=== PATIENT | male | born 1955 | race Caucasian/White ===

== ENCOUNTER 2016-08-19 09:10 | Observation (INO) | payer OTHER ==
--- NOTE | ~2016-08-19 | CR63 ---
[facility] A Service of [facility] RADIOLOGY TEXT RESULTS PATIENT: SERGIO LUNA LOCATION: [facility] 317 : 54 UNIT #: [id number] AGE: [address]: Javier Rossi MD SEX: M ORDER DR: [id number] [facility] [address] [place], [place] [address] [id number] I MR#: [id number] Acc #: [id number] NAME: SERGIO LUNA : 1955 SEX: M STUDY DATE/TIME: 08/19/2016 16:42 UNIT: [address] ROOM: [facility] STUDY DESCRIPTION: CR Chest 2 View Attending Physician: Zaheer Perez M.D. Ordering Physician: Ed Salomón Altamirano M.D. Primary Care Physician: Arpita Becker M.D. MEDICAL IMAGING REPORT This report is preliminary unless electronic signature is present EXAM 2 views chest 08/19/2016 HISTORY Weakness. Coughing, belly cramping began this a.m. History of asthma. Smoker 40+ years. TECHNIQUE PA and lateral radiographs of the chest are presented. COMPARISON Comparison 03/26/2016. FINDINGS Multiple old healed left rib fractures. Stable thoracic scoliosis. Heart [id number] limits of normal in size. Lungs hyperinflated. likely reflecting the patient's stated asthma, as well as probable COPD, given extensive smoking history. There is no evidence of acute infectious or inflammatory disease in the lungs. No pleural effusion or pneumothorax, and no suspicious nodule. Dictated by... Daron Ford M.D. THIS IS AN ELECTRONICALLY VERIFIED REPORT Daron Ford M.D. at 08/25/2016 10:15 AM STACIA/aurelia TD: 08/19/2016 18:32 JOB #: [id number] [facility] A Service of [facility] RADIOLOGY TEXT RESULTS PATIENT: SERGIO LUNA LOCATION: [facility] 317 : 54 UNIT #: [id number] AGE: [address]: Javier Rossi MD SEX: M ORDER DR: MEDICAL IMAGING REPORT Page 1 of 1 COPY
--- NOTE | ~2016-08-19 | DS ---
Unit #: [id number] #: [id number] Patient: SERGIO LUNA [id number] [facility] [address]. [place], [place] [address] [id number] I MR#: [id number] NAME: SERGIO LUNA. ROOM: 317 Age: 61 Sex: M Admission Date: 08/19/2016 : 1955 Discharge Date: 08/20/2016 Attending Physician: Javier Rossi M.D. Primary Care Physician: Arpita Becker M.D. DISCHARGE SUMMARY HOSPITAL COURSE This 61-year-old patient was admitted at [facility] with anemia. Patient had heme-positive stool and a hemoglobin of 8.6. His hemoglobin is [address] Up is planning to do an EGD, but patient is very upset as apparently his girlfriend did not get a guest food tray and wants to go home. Patient states that he will get scope done on outpatient basis. The nursing staff has spoken with Dr. Up who has stated that patient can be discharged and he will do scope on outpatient basis. Patient does not have any active bleeding, but his stools were heme-positive. He has history of alcoholism and alcoholic hepatitis. Patient is ambulatory and his last vital signs reveal temperature of 98.5, pulse is 72 per minute, respiratory rate is 18 per minute, and blood pressure is 130/77. His lab work today revealed creatinine of 1.3, sodium 135, and potassium is 3.9. His WBCs are 5.4, hemoglobin 8, and platelet count is 322. Therefore, we will discharge patient home with followup on outpatient basis. Patient had a chest x-ray done, which did not reveal any acute evidence of infection or inflammatory disease in the lungs. His urinalysis did not reveal any white blood cells and blood was negative. Therefore, patient will be discharged to follow up on outpatient basis. RECOMMENDATIONS ON DISCHARGE 1. Condition stable. 2. Activity as tolerated. 3. Followup: Patient advised to follow up with primary care physician in 3-[address] Up as recommended for EGD on outpatient basis. 4. Patient is advised to follow up with [facility] for alcohol abuse. MEDICATIONS ON DISCHARGE Patient is advised to continue his home medications, which include: 1. Albuterol 2 puffs q.4 hours p.r.n. 2. Lotrel 5/20 mg 1 tablet p.o. daily. 3. Tenormin 25 mg p.o. daily. 4. Prilosec 20 mg p.o. daily. 5. Folic acid 1 mg p.o. daily. 6. Vitamin D 50,000 units q.7 days. 7. I also advised patient to take thiamine 100 mg p.o. daily and iron sulfate 325 mg p.o. daily [id number]. The plan was discussed in detail with patient who showed complete understanding. He was offered to stay in hospital and get the EGD done, Unit #: [id number] #: [id number] Patient: SERGIO LUNA but patient is very upset and he is adamant to go home. He shows understanding to the fact that his noncompliance can lead to worsening of his condition and can lead to permanent disability and possible . Patient was offered a cardiology consultation, which his primary care has recommended, but patient declined that. So, we will request the patient's primary care physician to follow up on outpatient basis. Dictated by... Alvaro Najera TD: 08/20/2016 12:45 JOB #: [id number] CC: Alvaro Serna M.D. DISCHARGE SUMMARY Page 1 of 1 X Javier Rossi MD DISCHARGE SUMMARY
--- NOTE | ~2016-08-19 | HP ---
Unit #: [id number] #: [id number] Patient: SERGIO LUNA N [id number] [address] [place], [place] [address] [id number] I MR#: [id number] NAME: SERGIO LUNA ROOM: 317 Age: 61 Sex: M Admission Date: 08/19/2016 : 1955 Attending Physician: Jaycee Perez M.D. Primary Care Physician: Arpita Becker M.D. HISTORY AND PHYSICAL CHIEF COMPLAINT Weakness. HISTORY OF PRESENT ILLNESS The patient is 61-year-old male with history of hypertension who was brought to the hospital from the PCP's office concerning for the weakness and anemia. The patient had a blood work at the PCP's office two days ago with a hemoglobin of 8.8 and positive for the fecal occult blood test. The patient refused colonoscopy in the past and followup with the GI in the past. The patient also drinks alcohol pint to half a fifth of vodka. The patient is being admitted for the above reasons. PAST MEDICAL HISTORY History of hypertension. PAST SURGICAL HISTORY History of in the left shoulder. SOCIAL HISTORY Smokes a pack per day. Drinks alcohol pint to half of a fifth of vodka. Denies any illicit drug abuse. FAMILY HISTORY Reviewed and none. PHYSICAL EXAMINATION VITAL SIGNS: Temperature 98.1, pulse 89, respiratory rate 20, blood pressure 132/92. GENERAL: Patient is lying on the bed not in acute distress. HEENT: Atraumatic, normocephalic. Pupils equal, round, and reactive to light and accommodation. Extraocular movements are intact. NECK: Supple. LUNGS: Decreased air entry at the bases. HEART: Regular rate and rhythm. ABDOMEN: Soft, positive bowel sounds. EXTREMITIES: No cyanosis, no clubbing. DIAGNOSTIC STUDIES LABORATORY: Lab data pending. Hemoglobin 8.8 with fecal occult blood test positive. ASSESSMENT AND PLAN 1. Weakness. 2. Anemia. Unit #: [id number] #: [id number] Patient: SERGIO LUNA 3. Gastrointestinal bleed. PLAN 1. Admit patient as observation with telemetry. 2. Patient will be put on Protonix 40 IV daily. 3. Gastroenterology consultation. 4. Check chest x-ray. 5. Check CBC and BMP and UA in the morning. 6. Further recommendations will follow. Dictated by Alvaro Reynaga/tali TD: 08/19/2016 17:42 JOB #: [id number] HISTORY AND PHYSICAL Page 1 of 1 X JAYCEE PEREZ MD X HISTORY AND PHYSICAL
[~2016-08-19 09:10] MED LIST: ATENOLOL PO; LOTREL 5/20 MG1 CAP PO; PEN-VEE K PO; PERCOCET PO; VICODIN 5/500 T1 TAB PO
[2016-08-19 15:24] LABS: HEMATOCRIT 28.4 % (38.0-50.0); HEMOGLOBIN 8.6 gm/dL (13.0-16.0); MEAN CELL VOLUME 68.8 FL (83-96); MEAN CORPUSCULAR HEMOGLOBIN 20.9 PG (28-34); MEAN CORPUSCULAR HGB CONC 30.4 g/dL (30-36); MEAN PLATELET VOLUME 7.7 FL (6.5-11.5); RED BLOOD COUNT 4.13 X10e (3.90-5.60); RED CELL DISTRIBUTION WIDTH 20.3 % (11.0-15.5); WHITE BLOOD COUNT 9.9 X10e3 (4.0-10.5)
[2016-08-19] MEDS ORDERED: AMLODIPINE-BEN1 EACH PO (15:29)
[2016-08-19] MEDS ORDERED: FOLIC ACID1 MG PO (15:29)
[2016-08-19] MEDS ORDERED: PRILOSEC PO (15:30)
[2016-08-19] MEDS ORDERED: ALBUTEROL20 ml INH (15:31)
[2016-08-19] MEDS ORDERED: VITAMIN D22000 UNIT PO (15:33)
[2016-08-19 15:49] LABS: BUN/CREATININE RATIO 9.28; CALCIUM SERUM 8.2 mg/dL (8.4-10.2); CREATININE SERUM 1.4 mg/dL (0.6-1.4); GLOM FILT RATE Estimated 53.5 mL/min (>60); POTASSIUM 5.1 mmol/L (3.5-5.1)
[2016-08-19 22:57] LABS: URINE APPEARANCE CLEAR; URINE BILIRUBIN NEG (NEG); URINE BLOOD NEG (NEG); URINE COLOR YELLOW; URINE GLUCOSE 100 MG/DL (NEG); URINE KETONE TRACE (NEG); URINE LEUKOCYTE ESTERASE NEG (NEG); URINE NITRATE NEG (NEG); URINE PH 5.5 (5-8); URINE PROTEIN TRACE (NEG); URINE SPECIFIC GRAVITY 1.019 (1.003-1.035)
[2016-08-20 06:44] LABS: HEMATOCRIT 26.1 % (38.0-50.0); MEAN CELL VOLUME 68.8 FL (83-96); MEAN CORPUSCULAR HGB CONC 30.5 g/dL (30-36); MEAN PLATELET VOLUME 8.3 FL (6.5-11.5); RED BLOOD COUNT 3.8 X10e (3.90-5.60); RED CELL DISTRIBUTION WIDTH 19.8 % (11.0-15.5); WHITE BLOOD COUNT 5.4 X10e3 (4.0-10.5)
[2016-08-20 07:27] LABS: BUN/CREATININE RATIO 12.3; CREATININE SERUM 1.3 mg/dL (0.6-1.4); GLOM FILT RATE Estimated 58.5 mL/min (>60); POTASSIUM 3.9 mmol/L (3.5-5.1)
[2016-08-20] MEDS ORDERED: B-1100 MG PO (12:49)
[2016-08-20] MEDS ORDERED: IRON325 MG PO (12:49)
== END 2016-08-20 14:26 | disposition home or self-care (01) ==
LOC: C3A PCU 09:10 → UNDOADMOB 13:50 → C3A PCU 08-20 06:38
PROVIDERS: Internal Medicine
DX: D64.9 Anemia, unspecified (principal); R53.1 Weakness; R53.83 Other fatigue; K92.2 Gastrointestinal hemorrhage, unspecified; F10.20 Alcohol dependence, uncomplicated; K70.10 Alcoholic hepatitis without ascites; F17.200 Nicotine dependence, unspecified, uncomplicated
CPT/HCPCS: 71020; 80048; 81003; 85027; 87086; 94760; 96374; C9113; G0378

== ENCOUNTER → 2016-11-15 | Outpatient (CLI) | payer OTHER ==
[~2016-11-15] MED LIST changes: +ALBUTEROL20 ml INH; +AMLODIPINE-BEN1 EACH PO; +B-1100 MG PO; +FOLIC ACID1 MG PO; +IRON325 MG PO; +PRILOSEC PO; +VITAMIN D22000 UNIT PO
--- NOTE | ~2016-11-15 | OR ---
Unit #: [id number] #: [id number] Patient: SERGIO LUNA [id number] [address] [address] [id number] O MR#: [id number] NAME: SERGIO LUNA ROOM: Date of Procedure: 10/20/2016 Admission Date: 11/15/2016 Surgeon: Jaiden Up M.D. : 1955 Attending Physician: Jaiden Up M.D. Referring Physician: Jaiden Up M.D. Primary Care Physician: Arpita Becker M.D. OPERATIVE REPORT PROCEDURES PERFORMED Esophagogastroduodenoscopy with biopsy and colonoscopy with biopsies. INDICATIONS FOR PROCEDURE A 61-year-old gentleman with severe anemia, average risk for colorectal cancer, undergoing evaluation with upper endoscopy and colonoscopy. MEDICATIONS Monitored anesthesia. POSTOPERATIVE FINDINGS 1. Normal esophagus. 2. Mild chronic gastritis, biopsies taken. 3. Normal duodenum and distal duodenum. 4. Obstructing mass, transverse colon. I could not get into the cecum. Multiple biopsies taken. 5. Polyp, transverse colon. 6. Internal hemorrhoids. PLAN Follow up on the pathology report. CT scan of abdomen and pelvis. Further recommendations to follow. DESCRIPTION OF PROCEDURE The patient was explained of the procedure, risks, and benefits along with risks and benefits of anesthesia. He was brought to the endoscopy room. Propofol anesthesia was given. Bite block was placed. The scope was passed down the mouth into the esophagus, stomach, duodenum, and distal duodenum. Findings as described. Biopsies taken. Gently, the scope was pulled out of the patient's mouth. He tolerated it well. At this time, he was turned around and repositioned for colonoscopy. Rectal exam was done, which was normal. Colonoscope was lubricated, passed up the rectum, and advanced under direct vision all the way to the transverse colon. I could not go any further because of the obstructing mass. Gently, the scope was pulled out. Small polyp seen in transverse colon was left alone. I retroflexed in the rectum, small hemorrhoids seen. Scope was gently pulled out. He tolerated it well. No major complications were seen. Unit #: [id number] #: [id number] Patient: SERGIO LUNA Dictated by... Alvaro Serna/eugene TD: 11/18/2016 11:41 JOB #: [id number] OPERATIVE REPORT Page 1 of 1 X Jaiden Up MD X PROCEDURE OPERATIVE NOTE
--- NOTE | ~2016-11-15 | CT2 ---
[facility] A Service of [facility] RADIOLOGY TEXT RESULTS PATIENT: SERGIO LUNA LOCATION: [facility] : 53 UNIT #: [id number] AGE: [address]: Jaiden Up MD SEX: M ORDER DR: [id number] [facility] [address] [place], [place] [address] [id number] O MR#: [id number] #: [id number] NAME: SERGIO LUAN : 1955 SEX: M STUDY DATE/TIME: 11/15/2016 14:49 UNIT: [facility] ROOM: STUDY DESCRIPTION: CT Abd and Pelv W Cont Attending Physician: Jaiden Up M.D. Referring Physician: Jaiden Up M.D. Ordering Physician: Jaiden Up M.D. Primary Care Physician: Arpita Becker M.D. MEDICAL IMAGING REPORT This report is preliminary unless electronic signature is present EXAM CT of the abdomen and pelvis with contrast. HISTORY Abdominal cramping on and off for [address] images were obtained from the dome of the diaphragm through the symphysis pubis following administration of oral and intravenous contrast material. This CT exam was performed with one or more of the following radiation dose reduction techniques: automatic exposure control, adjustment of mA and/or kV according to patient size, and iterative reconstruction. FINDINGS Images through the lung bases are clear. The stomach and proximal small bowel appear within normal limits. Adrenal glands appear unremarkable. Calcified granulomata are seen within the spleen. Pancreas is within normal limits, as is the gallbladder. The liver appears unremarkable, as do the kidneys. This patient has a circumferentially thickened area of ascending colon, given history in appearance that is certainly worrisome for underlying colonic malignancy. Colitis would be in the differential, as well, but given relatively long-term history, again this is worrisome for malignancy. Further evaluation with colonoscopy is recommended. This process is not resulting in any obstruction. There is some mild pericolonic soft tissue stranding, and there are some prominent pericolonic nodes which measure around 5-6 mm in size. The appendix is visualized and is within normal limits. Dystrophic calcifications are seen within the prostate gland. Urinary bladder appears normal. This [facility] A Service of [facility] RADIOLOGY TEXT RESULTS PATIENT: SERGIO LUNA LOCATION: [facility] : 54 UNIT #: [id number] AGE: [address]: Jaiden Up MD SEX: M ORDER DR: patient does have colonic diverticulosis, but I do not see any convincing evidence of diverticulitis. I do not see any adenopathy within the pelvis. Review of bone windows does not demonstrate any aggressive osseous abnormalities. IMPRESSION 1. This patient has a circumferential area of thickening involving the ascending colon, adjacent to the hepatic flexure. Given history and appearance, I think it is certainly worrisome for malignancy. There does appear to be some associated mild pericolonic soft tissue stranding and some mildly prominent pericolonic nodes. Colitis would also be in the differential, but given length of symptoms, I think certainly malignancy would be the first consideration. Correlation with colonoscopy is recommended. Results were discussed with Dr. Up at 0836 on . 2. Colonic diverticulosis without any evidence of diverticulitis. 3. Prostate gland is enlarged. 4. Also noted, but not mentioned in the report, is a probable left hydrocele. Dictated by... Jacki August M.D. THIS IS AN ELECTRONICALLY VERIFIED REPORT Jacki August M.D. at 11/17/2016 8:36 AM AFF/js TD: 11/16/2016 11:37 JOB #: [id number] MEDICAL IMAGING REPORT Page 1 of 1 COPY
[2016-11-15 16:11] LABS: POC - CREATININE 1.26 mg/dL (0.64-1.27); POC - GFR >60.0 mL/min (>60)
== END | disposition home or self-care (01) ==
LOC: CCAT 11-01 16:40
PROVIDERS: Internal Medicine
DX: R10.84 Generalized abdominal pain (principal); K63.89 Other specified diseases of intestine; K57.30 Diverticulosis of large intestine without perforation or abscess without bleeding; N40.0 Benign prostatic hyperplasia without lower urinary tract symptoms
CPT/HCPCS: 74177; 82565; Q9967